=== PATIENT | female | born 1990 | race African-American/Black ===

== ENCOUNTER 2016-09-26 19:22 | Outpatient (RCR) | payer OTHER ==
[~2016-09-26 19:22] MED LIST: FOLIC ACID0.4 MG PO; TRANDATE 100MG100 MG PO; VITAMIN D1000 IU PO
[2016-09-26 20:32] LABS: HEMATOCRIT 22.7 % (37.0-47.0)
== END 2016-12-25 | disposition home or self-care (01) ==
LOC: EUO
PROVIDERS: Internal Medicine Nephrology
DX: D50.0 Iron deficiency anemia secondary to blood loss (chronic) (principal)

== ENCOUNTER 2017-11-30 11:54 | Inpatient (IN) | payer OTHER ==
[~2017-11-30] VITALS: Ht 162.6 cm; Wt 38.7 kg
[2017-11-30] MEDS ORDERED: TRANDATE 200MG200 MG PO (12:02)
[2017-11-30] MEDS ORDERED: CATAPRES 0.1MG0.1 MG PO (12:03)
[2017-11-30] MEDS ORDERED: NORCO 325 MG-51 TAB PO (12:15)
[2017-11-30] MEDS ORDERED: RIFADIN300 MG (12:15)
[2017-11-30] MEDS ORDERED: LOPRESSOR 225 MG/TAB PO (12:16)
[2017-11-30] MEDS ORDERED: PROCARDIA10 MG PO (12:17)
[2017-11-30 13:11] VITALS: BP 171/94; PULSE 86; TEMP 99.3
[2017-11-30 15:57] VITALS: BP 159/107; PULSE 95; TEMP 98.5
[2017-11-30 17:42] LABS: AMYLASE 170 U/L (30-110); LIPASE 107 U/L (23-300)
[2017-11-30 18:09] LABS: INFLUENZA A NEGATIVE; INFLUENZA B NEGATIVE
[2017-12-01 00:50] VITALS: BP 159/106; PULSE 103; TEMP 98.7
[2017-12-01 06:29] LABS: BASO % 0.5 % (0.0-2.0); EOS # 0.3 (0.0-0.7); EOS % 5.1 % (0-4.0); GRAN # 4.3 (1.4-6.5); GRAN % 74.1 % (42.2-75.2); LYMPH # 0.9 (1.2-3.4); LYMPH % 14.7 % (20.0-51.0); MEAN CELL VOLUME 88 fl (80.0-100.0); MEAN CORPUSCULAR HGB CONC 32 g/dl (33.0-37.0); MEAN PLATELET VOLUME 10.2 fl (7.4-10.4); MONO # 0.3 (0.1-0.6); MONO % 5.1 % (1.7-9.3); PLATELET COUNT 130 K/mm3 (130-400); RED BLOOD COUNT 3.36 M/mm3 (4.10-5.30); REDCELL DISTRIBUTION WIDTH-CV 14.7 % (11.5-14.5)
[2017-12-01 06:32] LABS: HEMATOCRIT 29.6 % (37.0-47.0); HEMOGLOBIN 9.4 g/dl (12.5-16.0); MEAN CORPUSCULAR HEMOGLOBIN 28 pg (27.0-31.0)
[2017-12-01 06:41] LABS: ALBUMIN 3.5 gm/dL (3.5-5.0); CALCIUM 8.9 mg/dL (8.4-10.2); POTASSIUM 4.1 mmol/L (3.4-5.0)
[2017-12-01 07:16] LABS: CREATININE, serum 8.19 mg/dL (0.52-1.25)
[2017-12-01 07:24] LABS: PHOSPHOROUS 4.5 mg/dL (2.5-4.5)
[2017-12-01 09:15] VITALS: BP 163/104; PULSE 91; TEMP 98.4
[2017-12-01 13:28] VITALS: BP 182/115; PULSE 88; TEMP 98.2
[2017-12-01 16:55] VITALS: BP 149/104; PULSE 101; TEMP 99
[2017-12-01 19:20] VITALS: BP 155/104; PULSE 106; TEMP 98.5
[2017-12-01 23:41] VITALS: BP 165/108; PULSE 100; TEMP 98.6
[2017-12-02 03:28] VITALS: BP 178/117; PULSE 92; TEMP 98.5
[2017-12-02 06:18] LABS: BASO % 0.5 % (0.0-2.0); EOS # 0.3 (0.0-0.7); EOS % 5.6 % (0-4.0); GRAN # 4.1 (1.4-6.5); GRAN % 74.1 % (42.2-75.2); LYMPH # 0.7 (1.2-3.4); LYMPH % 13.2 % (20.0-51.0); MEAN CELL VOLUME 88 fl (80.0-100.0); MEAN CORPUSCULAR HGB CONC 32 g/dl (33.0-37.0); MEAN PLATELET VOLUME 10.7 fl (7.4-10.4); MONO # 0.3 (0.1-0.6); MONO % 6.1 % (1.7-9.3); PLATELET COUNT 141 K/mm3 (130-400); RED BLOOD COUNT 3.27 M/mm3 (4.10-5.30); REDCELL DISTRIBUTION WIDTH-CV 14.9 % (11.5-14.5)
[2017-12-02 06:28] LABS: HEMATOCRIT 28.9 % (37.0-47.0); HEMOGLOBIN 9.3 g/dl (12.5-16.0); MEAN CORPUSCULAR HEMOGLOBIN 28 pg (27.0-31.0)
[2017-12-02 06:41] LABS: ALBUMIN 3.6 gm/dL (3.5-5.0); CALCIUM 8.8 mg/dL (8.4-10.2); PHOSPHOROUS 5.3 mg/dL (2.5-4.5); POTASSIUM 4.4 mmol/L (3.4-5.0)
[2017-12-02 06:44] LABS: CREATININE, serum 10.49 mg/dL (0.52-1.25)
[2017-12-02 13:03] VITALS: BP 195/127; PULSE 89; TEMP 65.5
[2017-12-02 15:39] VITALS: BP 161/106; PULSE 89; TEMP 98.6
[2017-12-02 19:27] VITALS: BP 159/106; PULSE 99; TEMP 99.8
[2017-12-02 23:53] VITALS: BP 172/108; PULSE 94; TEMP 98.7
[2017-12-03 03:38] VITALS: BP 168/103; PULSE 94; TEMP 99
[2017-12-03 07:19] LABS: BASO % 0.8 % (0.0-2.0); EOS # 0.3 (0.0-0.7); EOS % 6.8 % (0-4.0); GRAN # 2.1 (1.4-6.5); GRAN % 58.2 % (42.2-75.2); LYMPH % 26.5 % (20.0-51.0); MEAN CELL VOLUME 89 fl (80.0-100.0); MEAN CORPUSCULAR HGB CONC 32 g/dl (33.0-37.0); MEAN PLATELET VOLUME 10.4 fl (7.4-10.4); MONO # 0.2 (0.1-0.6); MONO % 6.6 % (1.7-9.3); PLATELET COUNT 161 K/mm3 (130-400); RED BLOOD COUNT 3.35 M/mm3 (4.10-5.30); REDCELL DISTRIBUTION WIDTH-CV 15.1 % (11.5-14.5)
[2017-12-03 07:20] LABS: ALBUMIN 3.6 gm/dL (3.5-5.0); CALCIUM 8.6 mg/dL (8.4-10.2); PHOSPHOROUS 4.7 mg/dL (2.5-4.5); POTASSIUM 4.2 mmol/L (3.4-5.0)
[2017-12-03 07:25] LABS: HEMATOCRIT 29.9 % (37.0-47.0); HEMOGLOBIN 9.5 g/dl (12.5-16.0); MEAN CORPUSCULAR HEMOGLOBIN 28 pg (27.0-31.0)
[2017-12-03 07:37] LABS: CREATININE, serum 6.96 mg/dL (0.52-1.25)
[2017-12-03 07:45] VITALS: BP 170/107; PULSE 90; TEMP 98.2
[2017-12-03 08:04] LABS: VANCOMYCIN,RANDOM 19.05 ug/mL
[2017-12-03 13:14] VITALS: BP 146/98; PULSE 78; TEMP 97.9
[2017-12-03 15:23] LABS: MUMPS AB IgG INDEX 3.8 (()); MUMPS VIRUS ANTIBODY,IGG Positive (())
[2017-12-03 16:57] LABS: MUMPS AB IgM INDEX 0.34 (())
[2017-12-03 17:01] VITALS: BP 142/97; PULSE 79; TEMP 98.1
[2017-12-03 19:56] VITALS: BP 171/109; PULSE 77; TEMP 98.1
[2017-12-04 02:16] VITALS: BP 158/109; PULSE 78; TEMP 98.3
[2017-12-04 04:23] VITALS: BP 169/111; PULSE 84; TEMP 97.9
[2017-12-04 07:17] LABS: BASO % 0.5 % (0.0-2.0); EOS # 0.4 (0.0-0.7); EOS % 9.2 % (0-4.0); GRAN # 1.9 (1.4-6.5); GRAN % 51.2 % (42.2-75.2); LYMPH # 1.3 (1.2-3.4); MEAN CELL VOLUME 89 fl (80.0-100.0); MEAN CORPUSCULAR HGB CONC 32 g/dl (33.0-37.0); MEAN PLATELET VOLUME 10.5 fl (7.4-10.4); MONO # 0.2 (0.1-0.6); MONO % 5.3 % (1.7-9.3); PLATELET COUNT 165 K/mm3 (130-400); RED BLOOD COUNT 3.09 M/mm3 (4.10-5.30); REDCELL DISTRIBUTION WIDTH-CV 15.2 % (11.5-14.5)
[2017-12-04 07:21] LABS: HEMATOCRIT 27.4 % (37.0-47.0); HEMOGLOBIN 8.8 g/dl (12.5-16.0); MEAN CORPUSCULAR HEMOGLOBIN 28 pg (27.0-31.0)
[2017-12-04 07:27] LABS: ALBUMIN 3.6 gm/dL (3.5-5.0); CALCIUM 8.4 mg/dL (8.4-10.2); PHOSPHOROUS 5.6 mg/dL (2.5-4.5); POTASSIUM 4.6 mmol/L (3.4-5.0)
[2017-12-04 07:29] LABS: CREATININE, serum 9.44 mg/dL (0.52-1.25)
[2017-12-04] MEDS ORDERED: ADALAT CC60 MG PO (10:00)
[2017-12-04] MEDS ORDERED: CEFAZOLIN IV (10:02)
[2017-12-04 11:36] VITALS: BP 141/92
[2017-12-05 13:28] LABS: EBV EARLY ANTIGEN IGG Negative (()); EBV IGM AB Negative (()); EBV NUCLEAR ANTIGEN IGG Positive (())
== END 2017-12-04 12:20 | disposition home or self-care (01) | DRG 154 ==
LOC: MEDICAL 11:54
PROVIDERS: Internal Medicine; Internal Medicine Nephrology
PROC: 5A1D70Z Performance of Urinary Filtration, Intermittent, Less than 6 Hours Per Day (ICD-10-PCS; principal; 2017-12-04)
PROC: 5A1D70Z Performance of Urinary Filtration, Intermittent, Less than 6 Hours Per Day (ICD-10-PCS; 2017-12-04)
DX: K11.20 Sialoadenitis, unspecified (principal); N18.6 End stage renal disease; I12.0 Hypertensive chronic kidney disease with stage 5 chronic kidney disease or end stage renal disease; D63.1 Anemia in chronic kidney disease; Z99.2 Dependence on renal dialysis
CPT/HCPCS: J3370; J7050

== ENCOUNTER 2018-03-02 11:59 | Inpatient (IN) | payer MEDICARE, OTHER ==
[~2018-03-02] VITALS: Ht 162.6 cm; Wt 49.7 kg
[~2018-03-02 11:59] MED LIST changes: +ADALAT CC60 MG PO; +CATAPRES 0.1MG0.1 MG PO; +CEFAZOLIN IV; +LOPRESSOR 225 MG/TAB PO; +NORCO 325 MG-51 TAB PO; +PROCARDIA10 MG PO; +RIFADIN300 MG; +TRANDATE 200MG200 MG PO
[2018-03-02 12:56] VITALS: BP 189/124; PULSE 99; TEMP 97.8
[2018-03-02 15:50] VITALS: BP 162/108; PULSE 110; TEMP 99.3
[2018-03-02 20:07] VITALS: BP 124/81; PULSE 112; TEMP 99.5
[2018-03-02 23:45] VITALS: BP 135/88; PULSE 85; TEMP 99
[2018-03-03] VITALS (7 sets, daily range): BP systolic 159–208; BP diastolic 99–126; PULSE 82–91; TEMP 98.1–98.7
[2018-03-03 06:15] LABS: BASO % 0.4 % (0.0-2.0); EOS # 0.3 (0.0-0.7); EOS % 4.8 % (0-4.0); GRAN # 3.9 (1.4-6.5); GRAN % 71.5 % (42.2-75.2); LYMPH % 19.2 % (20.0-51.0); MEAN CELL VOLUME 84 fl (80.0-100.0); MEAN CORPUSCULAR HGB CONC 32 g/dl (33.0-37.0); MEAN PLATELET VOLUME 9.7 fl (7.4-10.4); MONO # 0.2 (0.1-0.6); MONO % 3.9 % (1.7-9.3); PLATELET COUNT 128 K/mm3 (130-400); RED BLOOD COUNT 3.24 M/mm3 (4.10-5.30); REDCELL DISTRIBUTION WIDTH-CV 18.8 % (11.5-14.5)
[2018-03-03 06:16] LABS: HEMATOCRIT 27.3 % (37.0-47.0); HEMOGLOBIN 8.6 g/dl (12.5-16.0); MEAN CORPUSCULAR HEMOGLOBIN 27 pg (27.0-31.0)
[2018-03-03 06:22] LABS: ALBUMIN 3.7 gm/dL (3.5-5.0); BILIRUBIN,TOTAL 0.7 mg/dL (0.0-1.0); CALCIUM 8.8 mg/dL (8.4-10.2); POTASSIUM 3.9 mmol/L (3.4-5.0); TOTAL PROTEIN 7.1 gm/dL (6.4-8.2)
[2018-03-03 06:33] LABS: CREATININE, serum 10.96 mg/dL (0.52-1.25)
[2018-03-04 03:58] VITALS: BP 160/97; PULSE 81; TEMP 98.3
[2018-03-04 06:03] LABS: MEAN CELL VOLUME 85 fl (80.0-100.0); MEAN CORPUSCULAR HGB CONC 31 g/dl (33.0-37.0); MEAN PLATELET VOLUME 9.9 fl (7.4-10.4); PLATELET COUNT 155 K/mm3 (130-400); RED BLOOD COUNT 3.42 M/mm3 (4.10-5.30); REDCELL DISTRIBUTION WIDTH-CV 18.8 % (11.5-14.5)
[2018-03-04 06:08] LABS: HEMATOCRIT 29.1 % (37.0-47.0); HEMOGLOBIN 9.1 g/dl (12.5-16.0); MEAN CORPUSCULAR HEMOGLOBIN 27 pg (27.0-31.0)
[2018-03-04 06:41] LABS: CALCIUM 8.9 mg/dL (8.4-10.2); POTASSIUM 4.2 mmol/L (3.4-5.0)
[2018-03-04 06:56] LABS: CREATININE, serum 7.52 mg/dL (0.52-1.25)
[2018-03-04 07:34] VITALS: BP 168/105; PULSE 88; TEMP 98.3
[2018-03-04 11:33] VITALS: BP 164/105; PULSE 93; TEMP 98
[2018-03-04 16:23] VITALS: BP 147/93; PULSE 73; TEMP 98.2
[2018-03-04 19:13] VITALS: BP 175/99; PULSE 72; TEMP 99.5
[2018-03-05 00:17] VITALS: BP 154/129; PULSE 88; TEMP 98.2
[2018-03-05 04:35] VITALS: PULSE 89; TEMP 98.2
[2018-03-05 05:59] VITALS: BP 183/116
[2018-03-05 07:00] LABS: MEAN CELL VOLUME 85 fl (80.0-100.0); MEAN CORPUSCULAR HGB CONC 32 g/dl (33.0-37.0); MEAN PLATELET VOLUME 8.8 fl (7.4-10.4); PLATELET COUNT 208 K/mm3 (130-400); RED BLOOD COUNT 3.73 M/mm3 (4.10-5.30); REDCELL DISTRIBUTION WIDTH-CV 19.2 % (11.5-14.5)
[2018-03-05 07:04] LABS: HEMATOCRIT 31.6 % (37.0-47.0); MEAN CORPUSCULAR HEMOGLOBIN 27 pg (27.0-31.0)
[2018-03-05 07:15] LABS: CALCIUM 9.2 mg/dL (8.4-10.2)
[2018-03-05 07:40] LABS: CREATININE, serum 10.28 mg/dL (0.52-1.25)
[2018-03-05 10:49] VITALS: BP 131/93; PULSE 78; TEMP 98.4
[2018-03-05] MEDS ORDERED: PROCARDIA XL90 MG PO (14:14)
[2018-03-05] MEDS ORDERED: TYLENOL 325MG325 MG PO (14:15)
[2018-03-05] MEDS ORDERED: TESSALON P100 MG/CAP PO (14:15)
[2018-03-05] MEDS ORDERED: LEVAQUIN 5500 MG/TA1 PO (14:16)
== END 2018-03-05 15:26 | disposition home or self-care (01) | DRG 640 ==
LOC: SURG 11:59 → MEDICAL 12:49 → PEDS 03-03 09:12 → MEDICAL 03-05 15:26
PROVIDERS: Internal Medicine
PROC: 5A1D70Z Performance of Urinary Filtration, Intermittent, Less than 6 Hours Per Day (ICD-10-PCS; principal; 2018-03-03)
PROC: 5A1D70Z Performance of Urinary Filtration, Intermittent, Less than 6 Hours Per Day (ICD-10-PCS; 2018-03-05)
DX: E87.70 Fluid overload, unspecified (principal); N18.6 End stage renal disease; I12.0 Hypertensive chronic kidney disease with stage 5 chronic kidney disease or end stage renal disease; N25.81 Secondary hyperparathyroidism of renal origin; R07.89 Other chest pain; I34.0 Nonrheumatic mitral (valve) insufficiency; I07.1 Rheumatic tricuspid insufficiency; D63.1 Anemia in chronic kidney disease; Z99.2 Dependence on renal dialysis
CPT/HCPCS: 99223-AI; 99232-AI; G0378; G0379; J0360; J1170; J1644; J1956; J2405; J3370; J7030; J7050

== ENCOUNTER 2018-08-09 21:52 | Inpatient (IN) | payer MEDICARE, OTHER ==
[~2018-08-09] VITALS: Ht 162.6 cm; Wt 46.1 kg
[~2018-08-09 21:52] MED LIST changes: +LEVAQUIN 5500 MG/TA1 PO; +PROCARDIA XL90 MG PO; +TESSALON P100 MG/CAP PO; +TYLENOL 325MG325 MG PO
[2018-08-09 22:43] VITALS: BP 196/122; PULSE 79; TEMP 99
[2018-08-09] MEDS ORDERED: VELPHORO PO (23:01)
[2018-08-10] VITALS (8 sets, daily range): BP systolic 124–216; BP diastolic 77–126; PULSE 73–108; TEMP 98.8–99.8
[2018-08-10 06:02] LABS: BASO % 0.2 % (0.0-2.0); EOS # 0.2 (0.0-0.7); EOS % 3.7 % (0-4.0); GRAN # 3.3 (1.4-6.5); GRAN % 67.5 % (42.2-75.2); LYMPH % 19.5 % (20.0-51.0); MEAN CELL VOLUME 85 fl (80.0-100.0); MEAN CORPUSCULAR HGB CONC 32 g/dl (33.0-37.0); MEAN PLATELET VOLUME 10.6 fl (7.4-10.4); MONO # 0.4 (0.1-0.6); MONO % 8.9 % (1.7-9.3); PLATELET COUNT 130 K/mm3 (130-400); RED BLOOD COUNT 3.14 M/mm3 (4.10-5.30)
[2018-08-10 06:03] LABS: HEMATOCRIT 26.6 % (37.0-47.0); HEMOGLOBIN 8.5 g/dl (12.5-16.0); MEAN CORPUSCULAR HEMOGLOBIN 27 pg (27.0-31.0)
[2018-08-10 06:12] LABS: ALBUMIN 3.5 gm/dL (3.5-5.0); BILIRUBIN,TOTAL 0.5 mg/dL (0.0-1.0); POTASSIUM 4.3 mmol/L (3.4-5.0); TOTAL PROTEIN 6.7 gm/dL (6.4-8.2)
[2018-08-10 06:18] LABS: CREATININE, serum 9.37 mg/dL (0.52-1.25)
[2018-08-11 00:50] VITALS: BP 130/78; PULSE 102; TEMP 99.8
[2018-08-11 04:50] VITALS: BP 178/100; PULSE 91; TEMP 99.7
[2018-08-11 06:17] LABS: BASO % 0.2 % (0.0-2.0); EOS # 0.2 (0.0-0.7); EOS % 2.6 % (0-4.0); GRAN % 75.7 % (42.2-75.2); LYMPH # 0.9 (1.2-3.4); MEAN CELL VOLUME 84 fl (80.0-100.0); MEAN CORPUSCULAR HGB CONC 32 g/dl (33.0-37.0); MEAN PLATELET VOLUME 10.2 fl (7.4-10.4); MONO # 0.5 (0.1-0.6); PLATELET COUNT 167 K/mm3 (130-400); RED BLOOD COUNT 2.99 M/mm3 (4.10-5.30); REDCELL DISTRIBUTION WIDTH-CV 15.9 % (11.5-14.5)
[2018-08-11 06:34] LABS: ALBUMIN 3.4 gm/dL (3.5-5.0); BILIRUBIN,TOTAL 0.5 mg/dL (0.0-1.0); CALCIUM 8.6 mg/dL (8.4-10.2); POTASSIUM 4.3 mmol/L (3.4-5.0); TOTAL PROTEIN 6.7 gm/dL (6.4-8.2)
[2018-08-11 06:36] LABS: HEMATOCRIT 25.1 % (37.0-47.0); MEAN CORPUSCULAR HEMOGLOBIN 27 pg (27.0-31.0)
[2018-08-11 06:46] LABS: CREATININE, serum 12.08 mg/dL (0.52-1.25)
[2018-08-11] MEDS ORDERED: FLAGYL500 MG PO (11:16)
[2018-08-11 12:05] VITALS: BP 119/78; PULSE 85; TEMP 99.3
== END 2018-08-11 13:02 | disposition home or self-care (01) | DRG 391 ==
LOC: MEDICAL 21:52
PROVIDERS: Internal Medicine Nephrology
PROC: 5A1D70Z Performance of Urinary Filtration, Intermittent, Less than 6 Hours Per Day (ICD-10-PCS; principal; 2018-08-11)
DX: K52.9 Noninfective gastroenteritis and colitis, unspecified (principal); N18.6 End stage renal disease; I12.0 Hypertensive chronic kidney disease with stage 5 chronic kidney disease or end stage renal disease; Z99.2 Dependence on renal dialysis; D63.1 Anemia in chronic kidney disease
CPT/HCPCS: J0744; J1170; J2405

== ENCOUNTER 2018-08-22 08:47 | Outpatient (CLI) | payer OTHER, MEDICARE ==
[~2018-08-22] VITALS: Ht 162.7 cm; Wt 47.0 kg
[~2018-08-22 08:47] MED LIST changes: +FLAGYL500 MG PO; +VELPHORO PO
[2018-08-22 14:02] VITALS: BP 128/89; PULSE 76; TEMP 97.1
[2018-08-22 15:06] VITALS: BP 146/93; PULSE 79
[2018-08-22 17:00] VITALS: BP 137/98; PULSE 66; TEMP 98
[2018-08-22 17:15] VITALS: BP 140/93; PULSE 72; TEMP 98
== END 2018-08-22 18:55 | disposition home or self-care (01) ==
LOC: COL.RAD 08:47
DX: T82.868A Thrombosis due to vascular prosthetic devices, implants and grafts, initial encounter (principal); I12.0 Hypertensive chronic kidney disease with stage 5 chronic kidney disease or end stage renal disease; N18.6 End stage renal disease; Z88.1 Allergy status to other antibiotic agents; Z99.2 Dependence on renal dialysis
CPT/HCPCS: C1769; C1887; J1644; J2250; J2997; J3010; Q9967

== ENCOUNTER 2018-10-07 09:57 | Inpatient (IN) | payer MEDICARE, OTHER ==
[2018-10-07] VITALS (21 sets, daily range): BP systolic 150–158; BP diastolic 96–102; PULSE 83–110; TEMP 98.8–99; O2SAT 95–100
[~2018-10-07] VITALS: Ht 162.6 cm; Wt 45.4 kg
[2018-10-07 11:22] LABS: BASO % 0.3 % (0.0-2.0); EOS # 0.3 (0.0-0.7); EOS % 3.9 % (0-4.0); GRAN # 5.1 (1.4-6.5); GRAN % 75.8 % (42.2-75.2); LYMPH % 15.2 % (20.0-51.0); MEAN CELL VOLUME 85 fl (80.0-100.0); MEAN CORPUSCULAR HGB CONC 31 g/dl (33.0-37.0); MEAN PLATELET VOLUME 9.2 fl (7.4-10.4); MONO # 0.3 (0.1-0.6); MONO % 4.5 % (1.7-9.3); PLATELET COUNT 171 K/mm3 (130-400); RED BLOOD COUNT 3.38 M/mm3 (4.10-5.30); REDCELL DISTRIBUTION WIDTH-CV 19.2 % (11.5-14.5)
[2018-10-07 11:23] LABS: HEMATOCRIT 28.7 % (37.0-47.0); HEMOGLOBIN 8.9 g/dl (12.5-16.0); MEAN CORPUSCULAR HEMOGLOBIN 26 pg (27.0-31.0)
[2018-10-07 11:32] LABS: ALBUMIN 4.3 gm/dL (3.5-5.0); BILIRUBIN,TOTAL 0.8 mg/dL (0.0-1.0); MAGNESIUM 2.2 mg/dL (1.6-2.3); PHOSPHOROUS 2.9 mg/dL (2.5-4.5); POTASSIUM 4.2 mmol/L (3.4-5.0); TOTAL PROTEIN 7.6 gm/dL (6.4-8.2)
[2018-10-07 11:37] LABS: CREATININE, serum 6.62 mg/dL (0.52-1.25)
[2018-10-08] VITALS (8 sets, daily range): BP systolic 153–193; BP diastolic 96–115; PULSE 84–99; TEMP 98.3–99.7
[2018-10-08 06:57] LABS: BASO % 0.5 % (0.0-2.0); EOS # 0.4 (0.0-0.7); EOS % 8.4 % (0-4.0); GRAN # 2.5 (1.4-6.5); GRAN % 59.3 % (42.2-75.2); LYMPH # 1.1 (1.2-3.4); LYMPH % 25.8 % (20.0-51.0); MEAN CELL VOLUME 85 fl (80.0-100.0); MEAN CORPUSCULAR HGB CONC 31 g/dl (33.0-37.0); MEAN PLATELET VOLUME 9.4 fl (7.4-10.4); MONO # 0.2 (0.1-0.6); MONO % 5.5 % (1.7-9.3); PLATELET COUNT 169 K/mm3 (130-400); RED BLOOD COUNT 3.22 M/mm3 (4.10-5.30); REDCELL DISTRIBUTION WIDTH-CV 19.4 % (11.5-14.5)
[2018-10-08 06:59] LABS: HEMATOCRIT 27.5 % (37.0-47.0); HEMOGLOBIN 8.5 g/dl (12.5-16.0); MEAN CORPUSCULAR HEMOGLOBIN 26 pg (27.0-31.0)
[2018-10-08 07:07] LABS: CALCIUM 9.5 mg/dL (8.4-10.2); POTASSIUM 4.3 mmol/L (3.4-5.0)
[2018-10-08 07:13] LABS: CREATININE, serum 5.84 mg/dL (0.52-1.25)
[2018-10-09] VITALS (7 sets, daily range): BP systolic 146–207; BP diastolic 93–128; PULSE 81–104; TEMP 98.9–99.9
[2018-10-09 09:26] LABS: BASO % 0.3 % (0.0-2.0); EOS # 0.3 (0.0-0.7); EOS % 8.6 % (0-4.0); GRAN # 2.1 (1.4-6.5); GRAN % 56.8 % (42.2-75.2); LYMPH # 1.1 (1.2-3.4); LYMPH % 28.9 % (20.0-51.0); MEAN CELL VOLUME 86 fl (80.0-100.0); MEAN CORPUSCULAR HGB CONC 32 g/dl (33.0-37.0); MEAN PLATELET VOLUME 8.8 fl (7.4-10.4); MONO # 0.2 (0.1-0.6); MONO % 5.1 % (1.7-9.3); PLATELET COUNT 140 K/mm3 (130-400); RED BLOOD COUNT 2.85 M/mm3 (4.10-5.30); REDCELL DISTRIBUTION WIDTH-CV 19.8 % (11.5-14.5)
[2018-10-09 09:28] LABS: HEMATOCRIT 24.4 % (37.0-47.0); HEMOGLOBIN 7.7 g/dl (12.5-16.0); MEAN CORPUSCULAR HEMOGLOBIN 27 pg (27.0-31.0)
[2018-10-09 09:36] LABS: CALCIUM 9.3 mg/dL (8.4-10.2); POTASSIUM 3.9 mmol/L (3.4-5.0)
[2018-10-09 09:46] LABS: CREATININE, serum 4.72 mg/dL (0.52-1.25)
[2018-10-09] MEDS ORDERED: TRANDATE 200MG200 MG PO (11:06)
== END 2018-10-09 14:10 | disposition home or self-care (01) | DRG 314 ==
LOC: COL.ER 09:57 → ICU 12:19 → MEDICAL 16:40
PROVIDERS: Emergency Medicine; Internal Medicine
PROC: 5A1D70Z Performance of Urinary Filtration, Intermittent, Less than 6 Hours Per Day (ICD-10-PCS; principal; 2018-10-08)
DX: T82.7XXA Infection and inflammatory reaction due to other cardiac and vascular devices, implants and grafts, initial encounter (principal); N18.6 End stage renal disease; R78.81 Bacteremia; I12.0 Hypertensive chronic kidney disease with stage 5 chronic kidney disease or end stage renal disease; I16.0 Hypertensive urgency; Y83.2 Surgical operation with anastomosis, bypass or graft as the cause of abnormal reaction of the patient, or of later complication, without mention of misadventure at the time of the procedure; R19.7 Diarrhea, unspecified; E87.79 Other fluid overload; Z99.2 Dependence on renal dialysis; D63.1 Anemia in chronic kidney disease
CPT/HCPCS: J1650; J3370

== ENCOUNTER → 2019-02-03 | Outpatient (CLI) | payer OTHER, MEDICARE ==
[~2019-02-03] VITALS: Ht 162.6 cm; Wt 47.1 kg
[~2019-02-03] MED LIST changes: +ASPIRIN E.C. 8181 MG PO; +ATARAX 25MG25 MG/TAB PO; +ELIQUIS 2.5 PO; +VELPHORO
[2019-02-03 12:42] VITALS: BP 113/72; PULSE 90
[2019-02-03 13:25] VITALS: BP 116/80; PULSE 71
--- NOTE | 2019-02-03 14:27 | NUR ---
AT 1315 LEFT UPPER CHEST SKIN WAS PREPPED WITH CHLORAPREP AND DRAPED IN STERILE FASHION BY RT MARILEE, JENNIFER. TIME OUT WAS TAKEN. 9ML LIDOCAINE INJECTED BY DR CAMACHO TO LEFT UPPER CHEST PORT SITE. tUNNEL DIALYSIS CATH REMOVED AT BEDSIDE BY DR CAMACHO. PRESSURE HELD X5MIN, STERILE GAUZE AND PAPERTAPE APPLIED BY RT MARILEE, TOP WADDY.
== END ==
LOC: COL.CAR 11:52
DX: Z49.01 Encounter for fitting and adjustment of extracorporeal dialysis catheter (principal)

== ENCOUNTER → 2019-08-21 | Outpatient (CLI) | payer OTHER ==
[~2019-08-21] MED LIST changes: +BACTRIM DS 8001 TAB PO; +COUMADIN 1MG1 MG/TAB PO; +COZAAR 50MG50 MG/TAB PO; +FLONASE NASAL S16 GM NS; +KYLEENA1 EACH IY; +MILLIPRED5 MG PO; +VITAMIN D3400 I1 PO; +ZESTRIL 20MG TA20 MG PO
== END ==
LOC: COL.LAB 10:15
DX: Z01.818 Encounter for other preprocedural examination (principal); N18.6 End stage renal disease

== ENCOUNTER → 2019-08-25 | Outpatient (CLI) | payer OTHER | LOC: ZCOL.LAB 10:19 | DX: Z00.5 Encounter for examination of potential donor of organ and tissue (principal) ==